=== PATIENT | female | born 1950 | race Caucasian/White ===

== ENCOUNTER 2019-03-20 17:00 | Emergency (ER) | payer OTHER ==
[~2019-03-20] VITALS: Ht 170.2 cm; Wt 61.2 kg
[~2019-03-20 17:00] MED LIST: ZOFRAN ODT4 MG PO
[2019-03-20] MEDS ORDERED: ARTIFICIAL TEA1 EAC1 OPHTHALMIC (17:28)
[2019-03-20] MEDS ORDERED: ZYLOPRIM300 MG PO (17:28)
[2019-03-20] MEDS ORDERED: ALBUTEROL2.5 MG/31 INH (17:28)
[2019-03-20] MEDS ORDERED: LIPITOR 20 MG T20 M1 PO ×2 (17:29→17:30)
[2019-03-20] MEDS ORDERED: ASPIR 8181 MG PO (17:29)
[2019-03-20] MEDS ORDERED: ATENOLOL 25 MG25 M1 PO (17:29)
[2019-03-20] MEDS ORDERED: VOLTAREN GEL 1100 G2 TOP (17:30)
[2019-03-20] MEDS ORDERED: CARISOPRODOL 3350 MG PO (17:30)
[2019-03-20] MEDS ORDERED: XALATAN2.5 ML OPHTHALMIC (17:31)
[2019-03-20] MEDS ORDERED: KLOR-CON 1010 MEQ PO (17:32)
[2019-03-20] MEDS ORDERED: NITROGLYCERIN0.4 MG SUBLING (17:32)
[2019-03-20] MEDS ORDERED: METHADONE HCL 110 M1 PO (17:32)
[2019-03-20] MEDS ORDERED: SERTRALINE HCL50 MG PO (17:33)
[2019-03-20] MEDS ORDERED: TORSEMIDE20 MG PO (17:33)
[2019-03-20] MEDS ORDERED: AMANTADINE 100100 MG PO (17:36)
[2019-03-20] MEDS ORDERED: SKIN TREATMENT225 GM TOP (17:38)
[2019-03-20] MEDS ORDERED: ASPIRIN325 PO (17:38)
[2019-03-20] MEDS ORDERED: CALCIUM 500 +1 EAC5 PO (17:38)
[2019-03-20] MEDS ORDERED: CRANBERRY200 MG PO (17:39)
[2019-03-20] MEDS ORDERED: ATIVAN0.5 MG PO (17:45)
[2019-03-20 19:24] VITALS: BP 140/83
== END 2019-03-20 22:21 ==
LOC: ER 17:00
DX: F41.9 Anxiety disorder, unspecified (principal); Z88.5 Allergy status to narcotic agent; Z88.0 Allergy status to penicillin